=== PATIENT | female | born 1985 | race African-American/Black ===

== ENCOUNTER 2018-09-12 04:11 | Inpatient (IN) ==
[2018-09-12] MEDS ORDERED: ONDANSETRON 4 MG/2 ML VIAL IV PRN ×2 (04:30→11:18)
[2018-09-12] MEDS: LACTATED RINGERS 1,000 ML IV SCH ×2 (04:40→05:22)
[2018-09-12] MEDS ORDERED: BUTORPHANOL 2 MG/ML VIAL IV PRN (04:45)
[2018-09-12] MEDS ORDERED: AMPICILLIN INJ 2,000 MG in SODIUM CHLORIDE 0.9% 100 ML IV ONE (04:49)
[2018-09-12] MEDS ORDERED: MEPERIDINE 50 MG/1 ML VIAL IV PRN (04:59)
[2018-09-12 05:24] LABS: Basophils % 0.4 % (0.0-0.8); Eosinophils # 0.2 10*3/uL (0.0-0.87); Eosinophils % 2.2 % (0.00-10.9); Hematocrit 26.3 VOL% (35.7-47.0); Hemoglobin 8.7 GM/DL (12.0-16.0); Immature Granulocytes % 2.8 %; Immature Granulocytes Absolute 0.19 #; Lymphocytes # 1.4 10*3/uL (1.4-4.0); Lymphocytes % 20.1 % (21.3-54.2); Mean Corpuscular HGB Conc 33.1 GM/DL (32-36); Mean Corpuscular Hemoglobin 35 PG (27-34); Mean Corpuscular Volume 104.8 FL (87-102); Mean Platelet Volume 9.7 FL (9.6-12.0); Monocytes # 0.6 10*3/uL (0.11-0.8); Monocytes % 8.3 % (1.7-12.7); Neutrophils # 4.4 10*3/uL (1.4-7.4); Neutrophils % 66.2 % (38.7-73.9); Platelet Count 152 T/CUMM (130-400); Red Blood Count 2.51 MC/CUMM (3.8-5.5); Red Cell Distribution Width 12.3 % (9.3-17.3); White Blood Count 6.7 T/CUMM (4-12)
[2018-09-12 06:20] LABS: Apearance,Urine Slightly Hazy (Clear); Bacteria,Urine Occasional /HPF (Few); Bilirubin,Urine Negative (Negative); Blood, Urine Negative (Negative); Glucose,Urine (UA) Negative (Negative); Ketones,Urine Negative (Negative); Mucus,Urine Occasional /LPF (Occasional); Nitrite,Urine Negative (Negative); Protein,Urine Negative; Renal Epithelial Cells,Urine Occasional /HPF (<1); Squamous Epithelial Cell,Urine Occasional /HPF (0-10); Urine Color Yellow (Yellow); Urine Specific Gravity 1.009 (1.001-1.035); Urine Urobilinogen < 2.0 EU/DL (0.2-1.0); WBC,Urine 1 /HPF (0-6)
[2018-09-12 06:23] LABS: Barbiturates Screen,Urine Negative (Negative); Benzodiazepines Screen,Urine Negative (Negative); Cannabinoid Screen,Urine Negative (Negative); Opiate Screen,Urine Negative (Negative); Phencyclidine Screen,Urine Negative (Negative)
[2018-09-12] MEDS ORDERED: CITRIC ACID/SODIUM CITRATE 30 ML UDCUP ONE (07:16)
[2018-09-12] MEDS ORDERED: NALOXONE 0.4 MG/ML VIAL IV PRN (07:17)
[2018-09-12] MEDS ORDERED: ePHEDrine 50 MG/ML AMP ONE (07:17)
[2018-09-12] MEDS ORDERED: ePHEDrine 50 MG/ML AMP IV PRN (07:17)
[2018-09-12] MEDS ORDERED: CITRIC ACID/SODIUM CITRATE 30 ML UDCUP PO ONE (07:17)
[2018-09-12] MEDS ORDERED: PROMETHAZINE 25 MG/1 ML VIAL IM ONE (07:17)
[2018-09-12] MEDS ORDERED: FAMOTIDINE 20 MG/2 ML VIAL IV ONE (07:17)
[2018-09-12] MEDS ORDERED: diphenhydrAMINE 50 MG/1 ML VIAL IV PRN (07:17)
[2018-09-12] MEDS ORDERED: hydrOXYzine HCL 25 MG/1 ML VIAL IM PRN (07:17)
[2018-09-12] MEDS ORDERED: fentaNYL 2 MCG/ROPIV 0.2% EPID 100 ML EPIDURAL ONE (07:18)
[2018-09-12] MEDS ORDERED: fentaNYL 2 MCG/ROPIV 0.2% EPID 100 ML EPIDURAL SCH (07:30)
[2018-09-12] MEDS ORDERED: LACTATED RINGERS 1,000 ML IV ONE (08:08)
[2018-09-12] MEDS ORDERED: OXYTOCIN/LR 20 UNIT/1,000 ML BAG IV SCH (08:30)
[2018-09-12] MEDS ORDERED: OXYTOCIN/LR 20 UNIT/1,000 ML BAG IV ONE ×2 (08:36→11:18)
[2018-09-12] MEDS ORDERED: AMPICILLIN INJ 1,000 MG in SODIUM CHLORIDE 0.9% 100 ML IV SCH (09:00)
[2018-09-12] MEDS ORDERED: LIDOCAINE 1% 50 ML VIAL ONE (09:32)
[2018-09-12] MEDS ORDERED: METHYLERGONOVINE 0.2 MG/1 ML AMP ONE (09:33)
[2018-09-12] MEDS ORDERED: miSOPROStol 200 MCG TABLET ONE (09:33)
[2018-09-12 10:33] LABS: Apearance,Urine Slightly Hazy (Clear); Bilirubin,Urine Negative (Negative); Blood, Urine Moderate mg/dL (Negative); Glucose,Urine (UA) Negative (Negative); Ketones,Urine Negative (Negative); Mucus,Urine Few /LPF (Occasional); Nitrite,Urine Negative (Negative); Protein,Urine 30 MG/DL; Squamous Epithelial Cell,Urine Occasional /HPF (0-10); Urine Color Yellow (Yellow); Urine Specific Gravity 1.013 (1.001-1.035); Urine Urobilinogen < 2.0 EU/DL (0.2-1.0); WBC,Urine <1 /HPF (0-6)
[2018-09-12] MEDS ORDERED: HYDROCORTISONE 2.5% RECTAL CREAM 30 GM TUBE TOP PRN (11:18)
[2018-09-12] MEDS ORDERED: oxyCODONE/ACETAMINOPHEN 5-325 MG TABLET PO PRN (11:18)
[2018-09-12] MEDS ORDERED: BISACODYL 10 MG SUPP RECTAL PRN (11:18)
[2018-09-12] MEDS ORDERED: RHO(D) IMMUNE GLOBULIN 300 MCG SYRINGE IM ONE (11:18)
[2018-09-12] MEDS ORDERED: BENZOCAINE 20%/MENTHOL 0.5% SPRAY 56 GM CAN TOP PRN (11:18)
[2018-09-12] MEDS ORDERED: LANOLIN 50% CREAM 0.3 OZ TUBE TOP PRN (11:18)
[2018-09-12] MEDS ORDERED: ACETAMINOPHEN 325 MG TABLET PO PRN (11:18)
[2018-09-12] MEDS ORDERED: MEASLES/MUMPS/RUBELLA VACCINE 0.5 ML VIAL SUBCUT ONE (11:18)
[2018-09-12] MEDS ORDERED: WITCH HAZEL PADS 100/JAR TOP PRN (11:18)
[2018-09-12] MEDS ORDERED: DIPH/TET/ACEL PERT BOOSTER VACCINE 0.5 ML VIAL IM ONE (11:18)
[2018-09-12 13:40] LABS: Hepatitis B Surface Ag Quant < 0.10 Index; Hepatitis B Surface Ag Result Negative (Negative)
[2018-09-12 14:09] LABS: HIV Antigen/Antibody Result Nonreactive (Nonreactive)
[2018-09-12] MEDS: IBUPROFEN 800 MG TABLET PO PRN (15:12)
[2018-09-12] MEDS: oxyCODONE/ACETAMINOPHEN 5-325 MG TABLET PO PRN (18:47)
[2018-09-12] MEDS: DOCUSATE SODIUM 100 MG CAPSULE PO SCH (21:15)
[2018-09-13] MEDS: IBUPROFEN 800 MG TABLET PO PRN ×3 (00:10→20:51)
[2018-09-13] MEDS: oxyCODONE/ACETAMINOPHEN 5-325 MG TABLET PO PRN ×3 (04:46→20:51)
[2018-09-13 06:24] LABS: Basophils % 0.3 % (0.0-0.8); Eosinophils # 0.2 10*3/uL (0.0-0.87); Eosinophils % 2.8 % (0.00-10.9); Hematocrit 25.2 VOL% (35.7-47.0); Hemoglobin 8.3 GM/DL (12.0-16.0); Immature Granulocytes % 1.6 %; Immature Granulocytes Absolute 0.12 #; Lymphocytes # 1.7 10*3/uL (1.4-4.0); Lymphocytes % 22.2 % (21.3-54.2); Mean Corpuscular HGB Conc 32.9 GM/DL (32-36); Mean Corpuscular Hemoglobin 34 PG (27-34); Mean Corpuscular Volume 104.1 FL (87-102); Mean Platelet Volume 10.1 FL (9.6-12.0); Monocytes # 0.6 10*3/uL (0.11-0.8); Monocytes % 8.1 % (1.7-12.7); Neutrophils # 4.9 10*3/uL (1.4-7.4); Platelet Count 151 T/CUMM (130-400); Red Blood Count 2.42 MC/CUMM (3.8-5.5); Red Cell Distribution Width 12.2 % (9.3-17.3); White Blood Count 7.5 T/CUMM (4-12)
[2018-09-13] MEDS: DOCUSATE SODIUM 100 MG CAPSULE PO SCH ×2 (09:55→20:51)
[2018-09-14] MEDS: oxyCODONE/ACETAMINOPHEN 5-325 MG TABLET PO PRN ×2 (03:37→10:39)
[2018-09-14] MEDS: IBUPROFEN 800 MG TABLET PO PRN ×2 (03:37→15:08)
[2018-09-14] MEDS ORDERED: DIPH/TET/ACEL PERT BOOSTER VACCINE 0.5 ML VIAL IM ONE (09:00)
[2018-09-14] MEDS: DOCUSATE SODIUM 100 MG CAPSULE PO SCH (09:22)
[2018-09-14 11:38] VITALS: BP 143/83
== END 2018-09-14 16:00 | disposition home or self-care (01) | DRG 560 ==
LOC: N.LDOUT 04:11 → N.LD 04:12
PROVIDERS: ADMIT Obstetrics & Gynecology; ATTEND Obstetrics & Gynecology